=== PATIENT | male | born 1940 | race Caucasian/White ===

== ENCOUNTER 2017-01-27 08:19 | Day surgery (SDC) | payer MEDICARE ==
[~2017-01-27] VITALS: Ht 167.6 cm; Wt 68.0 kg
--- NOTE | 2017-02-08 07:06 | OR ---
ADMIT: 01/27/2017 RM/LOC: [facility] MR#: [id number] [address] [id number] ANA CRAIN Riya [address] [place] [id number] Operative/Delivery Room Report SEX: M AGE: 76 : 1940 SURGERY DATE: 01/27/2017 SURGEON: Pino Parkinson MD PREOPERATIVE DIAGNOSIS: Dysphagia. POSTOPERATIVE DIAGNOSIS: Mild distal esophageal stricture, less than 1 cm hiatal hernia, otherwise normal appearing upper endoscopy. PROCEDURES PERFORMED: 1. EGD with biopsies. 2. Dilation with an 18-20 mm balloon up to maximal diameter of 20 mm at the GE junction. ANESTHESIA: Sedation. ESTIMATED BLOOD LOSS: None. DESCRIPTION OF PROCEDURE: After appropriate informed consent was obtained, the patient was brought to the endoscopy suite. IV sedation was provided. A well-lubricated endoscope was introduced and passed down the esophagus. The proximal and mid esophagus appeared normal. Distal esophagus though showed very subtle stricture, mild reflux changes, and about 1 cm sliding-type hiatal hernia. The scope was easily advanced through this area. The gastric mucosa appeared normal throughout. The pylorus was intubated. Duodenal bulb, second, and third portion of the duodenum appeared normal. The scope was then pulled back into the stomach, retroflexed again revealing just a very small hiatal hernia from below. No proximal gastritis or mass. Several biopsies taken of the antrum. Biopsies also taken of the distal esophagus. An 18-20 mm balloon was then passed across the GE junction, first inflated to 18, then 19, and subsequently up to 20 mm, held inflated for 1 minute. The balloon was then deflated. This gave us a nice dilation effect to the GE junction. The stomach was deflated and the scope withdrawn without apparent complications. The patient tolerated the procedure well and was taken to the recovery room in stable condition. It should also be noted that there was no evidence of stricturing in the proximal esophagus. Pino Parkinson MD/ ar JOB #: [id number] CC: Pino Parkinson, Attending Physician Bala Pride, Family Physician Bala Pride MD
== END 2017-01-27 12:03 | disposition home or self-care (01) ==
LOC: SSS 08:19
DX: K22.2 Esophageal obstruction (principal); K44.9 Diaphragmatic hernia without obstruction or gangrene; J44.9 Chronic obstructive pulmonary disease, unspecified; K21.9 Gastro-esophageal reflux disease without esophagitis; M19.90 Unspecified osteoarthritis, unspecified site; Z79.899 Other long term (current) drug therapy; Z98.890 Other specified postprocedural states